=== PATIENT | female | born 1975 | race Two or more races ===

== ENCOUNTER 2022-02-05 11:18 | Emergency (ER) | payer OTHER ==
[~2022-02-05] VITALS: Ht 160 cm; Wt 72.6 kg
[2022-02-05] MEDS ORDERED: AMBIEN10 MG PO (12:06)
== END 2022-02-05 15:19 | disposition home or self-care (01) ==
LOC: ER 11:18
DX: R20.0 Anesthesia of skin (principal); R00.2 Palpitations; Z88.1 Allergy status to other antibiotic agents